=== PATIENT | female | born 1950 | race Caucasian/White ===

== ENCOUNTER → 2016-10-20 | Emergency (ER) | payer OTHER ==
[~2016-10-20] VITALS: Ht 160 cm; Wt 82.5 kg
[~2016-10-20] MED LIST: ALBUTEROL; ALBUTEROL 0.5% (NEB) 2.5 MG/0.5 ML AMP HHN STA; IBUP-1542 PO; IPRATROPIUM (NEB) 0.5 MG/2.5 ML AMP HHN ONE; METHYLPREDNISOLONE 125 MG INJ IM ONE; MOTRIN; PRED20TA PO
[2016-10-20 18:02] VITALS: Ht 160 cm; Wt 82.5 kg
--- NOTE | 2016-10-20 19:30 | ERD ---
ER Documentation Chief Complaint Date/Time DATE: 10/20/16 TIME: 19:26 Chief Complaint sob; cough; clear phlegm x 1 week; wheezing started 30 mins ago HPI 66-year-old female complaining of cough 1 week. Cough is productive with clear sputum. Patient states that she had wheezing this morning. Patient also reports subjective fever last night. She has history of asthma and diabetes. She did not use her inhaler today because she was in [place]. Denies shortness of breath at this time. Denies chest pain. ROS All systems reviewed and are negative except as per history of present illness. 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 ASSISTANT [employer] CONTR[employer] OPERATOR 08/21/15 Reported Medications [Albuterol] No Conflict Check, Y 05/30/11 [Motrin] No Conflict Check, Y 05/30/11 Allergies Allergies: Coded Allergies: Codeine (Verified Allergy, Mild, 05/30/11) PER REC RN, PATIENT IS NOT ALLERGIC BUT ONLY SENSITIVE Sulfa (Sulfonamide Antibiotics) (Verified Allergy, 05/30/11) PMhx/Soc History of Surgery: No Anesthesia Reaction: No Hx Neurological Disorder: No Hx Respiratory Disorders: No Hx Cardiac Disorders: No Hx Psychiatric Problems: No Hx Miscellaneous Medical Probl: No (htn diabetes) Hx Alcohol Use: No Hx Substance Use: No Hx Tobacco Use: No Smoking Status: Never smoker Physical Exam Vitals Vital Signs Date Time Temp Pulse Resp B/P Pulse Ox O2 Delivery O2 Flow Rate FiO2 10/20/16 19:30 106 20 99 21 10/20/16 18:02 100.2 100 20 138/89 97 Physical Exam General impression: Well-developed, well-nourished. Alert, oriented, in no acute distress Head: Normocephalic, atraumatic. Eyes: PERRL, EOM normal. Conjunctiva not injected. ENT: Nasal mucosa, oral mucosa and oropharynx are normal. Neck: Supple, nontender. No lymphadenopathy. No nuchal rigidity. Respiration: Normal respiratory effort. Wheezing and prolonged expiration noted in the bilateral lower lobes. Cardiovascular: Regular rate and rhythm. No murmurs or extra heart sounds. Abdomen: Abdomen normal to inspection. Nontender. No masses or organomegaly. Bowel sounds normal. Neuro: Mental status normal, speech normal. 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 Skin: Normal turgor. No rash or lesions. Psych: Normal mood and affect. Results 24 hrs Current Medications Medications (Trade) Dose Ordered Sig/Salvador Route PRN Reason Start Time Stop Time Status Last Admin Dose Admin Methylprednisolone Sodium Succinate (Solu-Medrol) 125 mg ONCE ONCE IM 10/20/16 19:30 10/20/16 19:31 DC 10/20/16 19:27 Albuterol (Proventil 0.5% (Neb)) 5 mg ONCE STAT HHN 10/20/16 19:06 10/20/16 19:08 DC 10/20/16 19:30 Ipratropium [place] (Atrovent 0.02% (Neb)) 0.5 mg ONCE ONCE HHN 10/20/16 19:30 10/20/16 19:31 DC 10/20/16 19:30 Procedures/MDM Well-appearing 66-year-old female with history of asthma presents to the ED with complaint of wheezing. Solu-Medrol 125 mg IM, albuterol 5 mg and Atrovent 0.5 mg nebulizer treatment given to the patient in the ED. After nebulizer treatment, patient reports much better breathing. Repeat exam revealed completely clear lungs bilaterally without any wheezing. I doubt pneumonia, pneumothorax, or PE. Patient states that she still has albuterol inhaler at home. Patient appears well, stable for discharge and outpatient management. Medical decision making shared with patient and family. Education provided to patient and family. Patient and family expressed understanding of the plan. Medications on discharge: Prednisone. Follow-up: Primary care provider in 2-3 days or return to ED if worse. ZO CHRISTIE NP Oct 20, 2016 19:29
[2016-10-20 19:54] VITALS: PULSE 104; RESP 20; TEMP 98.9
== END | disposition home or self-care (01) ==
LOC: FTE 17:28
DX: J45.901 Unspecified asthma with (acute) exacerbation (principal); I10 Essential (primary) hypertension; E11.9 Type 2 diabetes mellitus without complications
CPT/HCPCS: 94664; 96372; J2930; Z7502; Z7610